=== PATIENT | male | born 1965 | race Caucasian/White ===

== ENCOUNTER 2019-08-12 11:13 | Observation (INO) | payer OTHER ==
[~2019-08-12] VITALS: Ht 175.3 cm; Wt 61.7 kg
[2019-08-12 11:15] VITALS: BP 103/74
[2019-08-12 11:36] LABS: ABSOLUTE LYMPHOCYTES 1.1 thou/uL (0.8-5.3); ABSOLUTE MONOCYTES 1.6 thou/uL (0.0-1.2); ABSOLUTE NEUTROPHILS 6.8 thou/uL (1.6-8.1); BASOPHILS 0.3 %; EOSINOPHILS 0.3 %; HEMATOCRIT 44.2 % (42.0-52.0); HEMOGLOBIN 15.2 gm/dL (14.0-18.0); LYMPHOCYTES 11.3 %; MCH 29.6 pg (26.0-34.0); MCHC 34.4 g/dL (28.0-37.0); MONOCYTES 16.5 %; MPV 8.9 fl. (7.2-11.1); NUCLEATED RBCS 0 /100WBC; PLATELET COUNT* 182 thou/uL (150-400); POLYS 71.6 %; RBC 5.15 mil/uL (4.50-6.00); RDW-CV 13.4 % (10.5-14.5); WBC 9.5 thou/uL (4.0-11.0)
[2019-08-12 11:47] LABS: PROTIME 10.5 Seconds (9.20-11.50)
[2019-08-12 11:49] LABS: CALCIUM 8.3 mg/dL (8.5-10.1); CREATININE 1.1 mg/dL (0.6-1.3); POTASSIUM 3.4 mmol/L (3.5-5.1)
[2019-08-12 12:00] LABS: ALBUMIN 3.5 g/dL (3.4-5.0); TOTAL BILIRUBIN 0.7 mg/dL (<0.1-1.0)
[2019-08-12 13:14] LABS: INFLUENZA A ANTIGEN Negative (Negative); INFLUENZA B ANTIGEN Negative (Negative)
[2019-08-12 15:07] LABS: PCO2 35.7 mmHg (35.0-45.0); pH 7.392 (7.340-7.450)
[2019-08-12 15:28] VITALS: BP 94/60
--- NOTE | 2019-08-12 17:04 | NUR ---
INITAL ASSESSMENT COMPLETED CHARTED. VSS. TRACING SR ON MONITOR. PT STATED THAT THE ONLY TIME HE IS HAVING PAIN IS UPON DEEP INSPIRATION ONLY. MEDICATIONS GIVEN PER EMAR. REFER TO COMPUTER CHARTING FOR FURTHER DETAILS. HOURLY ROUNDING IN PLACE FOR PT SAFETY. CLWR.
[2019-08-12 20:00] VITALS: BP 94/61
[2019-08-12 23:25] VITALS: BP 98/66
[2019-08-13 04:30] VITALS: BP 103/73
--- NOTE | 2019-08-13 04:49 | NUR ---
PT HAD NO C/O PAIN OR DISCOMFORT. THE PT WAS INFORMED THAT HE WOULD NPO AFTER MIDNIGHT, PT STATED IF HE WAS HUNGRY HE WAS GOING TO EAT. EDUCATED THE PT ON WHY HE NEEDED TO BE NPO BUT STATED THE SAME AGAIN. BROUGHT HIM A BAG OF FOOD AND IS AT BEDSIDE. NO OTHER ISSUES AT THIS TIME, PT S CURRENTLY ASLEEP WITH CALL LIGHT WITHIN REACH.
[2019-08-13 06:56] LABS: HEMATOCRIT 42.2 % (42.0-52.0); HEMOGLOBIN 14.5 gm/dL (14.0-18.0); MCH 29.5 pg (26.0-34.0); MCHC 34.4 g/dL (28.0-37.0); MCV 85.8 fL (80.0-100.0); MPV 8.8 fl. (7.2-11.1); RBC 4.92 mil/uL (4.50-6.00); RDW-CV 13.5 % (10.5-14.5)
[2019-08-13 07:00] VITALS: BP 107/74
--- NOTE | 2019-08-13 07:51 | NUR ---
INITAL ASSESSMENT COMPLETED CHARTED. VSS. TRACING NSR ON MONITOR. PT DENIES PAIN, SOA,CP, N/V/D. NO NEW CONCERNS AT THIS TIME. HOURLY ROUNDING IN PLACE FOR PT SAFETY. CLWR.
--- NOTE | 2019-08-13 09:07 | EKG ---
[place] [address] ELECTROCARDIOGRAM REPORT Name: MOSQUEDALIANA JONES Room: [address] M.R.#: [id number] Admission: 08/12/19 Attend Phys: Quentin Casarez MD Discharge: Date of : 69 Report #: [id number] THIS REPORT FOR: //name// 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
[2019-08-13] MEDS ORDERED: RAYOS5 MG PO (09:36)
[2019-08-13 09:37] VITALS: BP 107/74
[2019-08-13] MEDS ORDERED: MUCINEX1200 MG PO (09:37)
[2019-08-13] MEDS ORDERED: PREDNISONE 20 M20 MG PO (11:19)
[2019-08-13] MEDS ORDERED: AZITHROMYCIN 2250 MG PO (11:19)
[2019-08-13] MEDS ORDERED: CEFDINIR300 MG PO (11:19)
--- NOTE | 2019-08-13 16:25 | CON ---
[address] [address] CONSULTATION Name: LIANA MOSQUEDA Room: [address] Leighton Nelson#: [id number] Admission: 08/12/19 Attend Phys: Quentin Casarez MD Discharge: 08/13/19 Date of : 69 Report #: [id number] THIS REPORT FOR: //name// CC: [facility] physician/PCP Quentin Casarez DATE OF SERVICE: 08/13/2019 CARDIOLOGY CONSULTATION HISTORY OF PRESENT ILLNESS: The patient is a 54-year-old white male who I was asked to see in the hospital today after he complained of chest pain. The patient has no previous history of heart disease. He has been half a pack a day smoker. He was doing well until 3 days ago, he was at work and he felt lightheaded, had to sit down. Two days ago, he felt short of breath and was coughing. He noticed some sharp stabbing pain on the left side of his chest, if he coughed or took a deep breath. He denies swelling of his feet or leg pain. He finally came to the Emergency Room yesterday and was admitted. He denied any palpitation or syncope. PAST MEDICAL HISTORY: Otherwise significant for tonsillectomy. No history of hypertension or diabetes. MEDICATIONS: He is on no medications. ALLERGIES: HE HAS PREVIOUS INTOLERANCE TO HYDROCODONE AND ACETAMINOPHEN. FAMILY HISTORY: Apparently, his son has a history of rapid heartbeat and has been seen by motor winder in the past. SOCIAL HISTORY: He is . He and his live in [place]. 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 He smokes half pack of cigarettes a day. He used to drink up to a case of beer a day, but no longer abuses alcohol. He has used marijuana and methamphetamines in the past. No IV drugs. REVIEW OF SYSTEMS: No history of stroke, peptic ulcer disease, liver disease, kidney disease, cancer, psychiatric illness or chronic skin condition. Unfortunately, he has no medical insurance. PHYSICAL EXAMINATION: GENERAL: Reveals a middle-aged male, lying in bed, appeared in no acute distress. VITAL SIGNS: He had a blood pressure of 110/60, pulse is 90, he is afebrile. HEENT: He was anicteric. Conjunctivae pink. Mucous membranes moist. NECK: Veins are nondistended. No carotid bruits. CHEST: [place] [address] CONSULTATION Name: LIANA MOSQUEDA Room: [address]#: [id number] Admission: 08/12/19 Attend Phys: Quentin Casarez MD Discharge: 08/13/19 Date of : 69 Report #: [id number] CARDIOVASCULAR: Regular rate without rub. ABDOMEN: Soft. EXTREMITIES: Had no edema. Dorsalis pedis pulse 2+ bilaterally. SKIN: Warm and dry. NEUROLOGIC: Nonfocal. LYMPH: No adenopathy. MUSCULOSKELETAL: No joint effusion. RADIOLOGICAL DATA: ECG shows a sinus rhythm, nonspecific T-wave changes. LABORATORY DATA: Potassium 3.4, creatinine 1.1. Troponins all 0.06. BNP 1507. White blood cell count 11.0, hemoglobin 14.5. He had workup in the Emergency Room that included a portable chest x-ray that showed normal heart size, clear lung olguin. CT scan of the chest was performed in the Emergency Room yesterday that showed no pulmonary embolus, some atelectasis. IMPRESSION AND RECOMMENDATIONS: 1. Chest pain. Suspect pleuritic. Recommend no further cardiac evaluation. 2. Tobacco abuse. 3. History of alcohol abuse. 4. Illicit drug use. 5. Bronchitis. <ELECTRONICALLY SIGNED> By: Michael Ndiaye MD, [facility] 08/13/19 1625 0819 [id number] Ndiaye MD, FACC /nt
== END 2019-08-13 12:40 | disposition home or self-care (01) ==
LOC: M.ERS 11:13 → M.TBA-ER 14:43 → M.2W 14:43
PROVIDERS: Personal Emergency Response Attendant; ADMIT Internal Medicine
DX: J15.8 Pneumonia due to other specified bacteria (principal); R06.03 Acute respiratory distress; R07.89 Other chest pain; L92.9 Granulomatous disorder of the skin and subcutaneous tissue, unspecified; E87.6 Hypokalemia; F12.10 Cannabis abuse, uncomplicated; F17.200 Nicotine dependence, unspecified, uncomplicated